=== PATIENT | female | born 1935 | race Caucasian/White ===

== ENCOUNTER 2017-02-22 12:20 | Emergency (ER) | payer OTHER ==
[~2017-02-22] VITALS: Ht 154.9 cm; Wt 70.8 kg
--- NOTE | ~2017-02-22 | EKG ---
[facility] [address] [place] [address] ELECTROCARDIOGRAM REPORT Name: GREGORYDEBRA Pérez Room #: REG [facility] CENTERLisbeth#: [id number] Admission: 02/22/17 Attend Phys: Discharge: Date of : 33 Report #: [id number] THIS REPORT FOR: //name// [facility] ED Test Date: 2017-02-22 Test Time: 12:50:13 Pat Name: DEBRA JENKINS Department: Room: Gender: F Librarian: Celeste TAVERAS : 1935 Requested By: George Hidalgo Order Number: [id number] MD: Abhijeet Alicea Measurements Intervals [place] Rate: 76 P: 67 CO: 140 QRS: 45 QRSD: 95 T: 41 QT: 391 QTc: 440 Interpretive Statements Sinus rhythm Low voltage, precordial leads Baseline wander in lead(s) V4 Compared to ECG 04/23/2010 06:03:29 Low QRS voltage now present Fusion complex(es) no longer present Electronically Signed On 02-22-2017 15:47:03 IDENTIFICATION CLERK by Abhijeet Alicea [email or web address] <ELECTRONICALLY SIGNED> By: Abhijeet Alicea MD 02/22/17 1547 1250 1250 Abhijeet Alicea MD /EPI
[~2017-02-22 12:20] MED LIST: ACETAMINOPHEN325 M1 PO; AMLODIPINE BESYL5 MG PO; ASPIRIN325 PO; BENICAR; BENICAR40 MG PO; BYSTOLIC2.5 MG; CALCIUM 600 +1 EAC5 PO; CETAPHIL MOISTU90 GM TP; COLACE100 MG PO; COZAAR 25 MG TA25 MG; DESOXIMETASONE15 G1 TP; GLYCOLAX POWDER17 G1; PLENDIL2.5 MG; PLENDIL5 MG PO; PREDNISONE 20 M20 M1 PO; PREDNISONE 20 M20 MG PO; PROTONIX40 M2 PO; ZYRTEC
[2017-02-22 13:19] LABS: ABSOLUTE NEUTROPHILS 5.9 thou/uL (1.4-8.2); BASOPHILS 0.9 % (0.0-2.0); EOSINOPHILS 2.9 % (0.0-3.0); HEMATOCRIT 44.8 % (37.0-47.0); LYMPHOCYTES 16.9 % (24.0-44.0); MCH 31.6 pg (26.0-34.0); MCHC 33.4 g/dL (28.0-37.0); MCV 94.4 fL (80.0-100.0); MONOCYTES 8.6 % (1.0-8.0); PLATELET COUNT 218 thou/uL (150-400); POLYS 70.7 % (36.0-66.0); RBC 4.74 mil/uL (4.20-5.00); RDW 14.9 % (10.5-14.5); WBC 8.4 thou/uL (4.0-11.0)
[2017-02-22 13:21] LABS: MANUAL DIFF NO
[2017-02-22] MEDS ORDERED: VALIUM5 MG PO (14:27)
[2017-02-22] MEDS ORDERED: ANTIVERT25 MG PO (14:27)
[2017-02-22 15:04] LABS: ANION GAP 11 mmol/L (7-16); BUN 27 mg/dL (7-18); CALCIUM 9.3 mg/dL (8.5-10.1); CHLORIDE 105 mmol/L (98-107); CO2 22 mmol/L (21-32); CREATININE 1.3 mg/dL (0.6-1.0); GLUCOSE 127 mg/dL (74-106); POTASSIUM 3.8 mmol/L (3.5-5.1); SODIUM 138 mmol/L (136-145)
[2017-02-22 15:08] LABS: ALBUMIN 3.4 g/dL (3.4-5.0); ALKALINE PHOSPHATASE 56 U/L (46-116); MAGNESIUM 2.2 mg/dL (1.8-2.4); SGOT 20 U/L (15-37); SGPT 35 U/L (30-65); TOTAL BILIRUBIN 0.6 mg/dL (<0.1-1.0); TOTAL PROTEIN 7.2 g/dL (6.4-8.2); TROPONIN-I < 0.04 ng/mL (<0.06)
[2017-02-22 15:45] VITALS: BP 142/68
== END 2017-02-22 15:47 | disposition home or self-care (01) ==
LOC: ER 12:20
PROVIDERS: Emergency Medicine
DX: H81.10 Benign paroxysmal vertigo, unspecified ear (principal); N18.9 Chronic kidney disease, unspecified

== ENCOUNTER 2017-05-24 22:53 | Inpatient (IN) | payer OTHER ==
[~2017-05-24] VITALS: Ht 154.9 cm; Wt 74.8 kg
[~2017-05-24 22:53] MED LIST changes: +ANTIVERT25 MG PO; +VALIUM5 MG PO
[2017-05-24 23:03] VITALS: BP 144/65
[2017-05-25 01:27] LABS: HEMOGLOBIN 12.7 gm/dL (12.0-15.0); MCH 30.7 pg (26.0-34.0); MCHC 32.6 g/dL (28.0-37.0); MCV 94.3 fL (80.0-100.0); PLATELET COUNT 278 thou/uL (150-400); RBC 4.14 mil/uL (4.20-5.00); RDW 14.5 % (10.5-14.5); WBC 16.7 thou/uL (4.0-11.0)
[2017-05-25 01:30] LABS: POTASSIUM 3.8 mmol/L (3.5-5.1)
[2017-05-25 01:48] LABS: ABSOLUTE NEUTROPHILS 9.9 thou/uL (1.4-8.2); ATYPICAL LYMPHS 6 %; MYELOCYTES 1 %; PLATELET ESTIMATE NORMAL
[2017-05-25 05:52] LABS: URINE BILIRUBIN NEGATIVE (Negative); URINE BLOOD NEGATIVE (Negative); URINE CLARITY CLEAR; URINE COLOR YELLOW; URINE GLUCOSE-RANDOM* NEGATIVE (Negative); URINE KETONES NEGATIVE (Negative); URINE LEUKOCYTES NEGATIVE (Negative); URINE NITRITE NEGATIVE (Negative); URINE PROTEIN (DIPSTICK) NEGATIVE (Negative); URINE UROBILINOGEN 0.2 E.U./dl (0.2-1.0)
[2017-05-25 12:14] VITALS: BP 135/68
[2017-05-25 20:00] VITALS: BP 91/49
[2017-05-26 05:00] VITALS: BP 131/55
[2017-05-26 06:06] LABS: HEMATOCRIT 34.6 % (37.0-47.0); HEMOGLOBIN 11.6 gm/dL (12.0-15.0); MCH 31.6 pg (26.0-34.0); MCHC 33.4 g/dL (28.0-37.0); MCV 94.5 fL (80.0-100.0); RBC 3.66 mil/uL (4.20-5.00); RDW 13.9 % (10.5-14.5); WBC 10.8 thou/uL (4.0-11.0)
[2017-05-26 08:03] LABS: CREATININE 1.4 mg/dL (0.6-1.0); POTASSIUM 3.7 mmol/L (3.5-5.1)
[2017-05-26 08:13] VITALS: BP 123/67
[2017-05-26] MEDS ORDERED: CEFUROXIME500 MG PO (10:01)
[2017-05-26] MEDS ORDERED: AZITHROMYCIN 2250 MG PO (10:01)
[2017-05-26 11:42] VITALS: BP 123/67
== END 2017-05-26 12:31 | disposition home or self-care (01) | DRG 193 ==
LOC: ER 22:53 → EROBS 05-25 00:47 → 4E 05-25 00:47
PROVIDERS: Emergency Medicine; Hospitalist
DX: J18.9 Pneumonia, unspecified organism (principal); N17.0 Acute kidney failure with tubular necrosis; M33.90 Dermatopolymyositis, unspecified, organ involvement unspecified; I10 Essential (primary) hypertension; E78.5 Hyperlipidemia, unspecified; E86.0 Dehydration; Z79.52 Long term (current) use of systemic steroids; Z79.899 Other long term (current) drug therapy
CPT/HCPCS: 10183